=== PATIENT | female | born 1950 | race Caucasian/White ===

== ENCOUNTER → 2016-12-01 08:42 | Outpatient (CLI) | payer MEDICARE, OTHER ==
[2011-06-25 14:11] VITALS: BMI 31.6
[~2016-12-01 08:42] MED LIST: CLARITIN 10 MG10 MG PO; HCTZ25 MG PO; HYDROCODON-ACE1 EAC7 PO; KLOR-CON 1010 MEQ PO; NAMENDA5 MG PO; OMEPRAZOLE20 M1 PO; PEPCID40 MG PO; SINGULAIR10 MG PO
[2017-01-11 10:30] VITALS: BMI 32.2
== END | disposition home or self-care (01) ==
LOC: D.RAD 08:42
DX: K21.9 Gastro-esophageal reflux disease without esophagitis (principal)

== ENCOUNTER 2017-01-11 08:23 | Day surgery (SDC) | payer MEDICARE, OTHER ==
[~2017-01-11] VITALS: Ht 152.4 cm; Wt 75.0 kg
[2017-01-11] MEDS ORDERED: HYDROCODON-ACE1 EAC7 PO (10:21)
[2017-01-11] MEDS ORDERED: PEPCID40 MG PO (10:22)
[2017-01-11] MEDS ORDERED: OMEPRAZOLE20 M1 PO (10:22)
[2017-01-11] MEDS ORDERED: KLOR-CON 1010 MEQ PO (10:23)
[2017-01-11] MEDS ORDERED: CLARITIN 10 MG10 MG PO (10:24)
[2017-01-11] MEDS ORDERED: HCTZ25 MG PO (10:24)
[2017-01-11] MEDS ORDERED: NAMENDA5 MG PO (10:24)
[2017-01-11] MEDS ORDERED: SINGULAIR10 MG PO (10:24)
[2017-01-11 10:30] VITALS: BP 142/79; Ht 152.4 cm; Wt 75.0 kg
--- NOTE | 2017-01-11 10:49 | NUR ---
1049 CALLED ANESTHESIA ORDER READS WITH INTUBATION. PERCY JACK AND DR KIRKPATRICK TALKED WITH PATIENT AND WILL NOT TO ANESTHESIA.
--- NOTE | 2017-01-11 14:26 | NUR ---
1330-PT DOING WELL NO DISTRESS ON ROOM AIR EVEN NONLABORED RESP EFFORT, POX 99% PT UP TO BATHROOM AND VOIDED AND PASSING GAS PT HAD TOLERATED FULL LIQUID TRAY WELL 1335-IV DISCONTINUED WITH CATHETER INTACT, DISCHARGE INSTRUCTIONS GIVEN AND WENT OVER WITH PATIENT. COPY HANDED TO PT AND PT STATES UNDERSTANDING. PT ESCORTED OUT VIA WHEELCHAIR IN STABLE CONDITION
--- NOTE | 2017-01-12 09:05 | OP ---
PATIENT NAME: TA HARDIN V MEDICAL RECORD: [id number] :52 LOCATION:D.OPS ADMISSION DATE: SURGEON: CORA FRANCES DO DATE OF OPERATION: 01/11/2017 PROCEDURE: Colonoscopy. SCOPE: Olympus video pediatric colonoscope. MEDICATIONS: Propofol 450 mg IV per anesthesia. INDICATIONS: Change in bowel habits, hematochezia. FINDINGS: Informed consent was given. The patient was made comfortable with the above medication. After reaching an adequate level of sedation by slow IV push, the patient was placed on her left side. The digital rectal examination was performed. On examination, she had some external hemorrhoids and tags present. The endoscope was then advanced under direct visualization to the cecum, evidenced by the appendiceal orifice and ileocecal valve. Scope was then slowly withdrawn while the mucosa was examined. There was evidence of pandiverticulosis of moderate severity with mixed, small, and large wide mouthed diverticula. Upon reaching the rectum, retroflexion was performed. On that view, there was some evidence of some small internal hemorrhoids without stigmata of bleeding. Scope was then withdrawn from the patient. The patient tolerated the procedure well and there were no complications. IMPRESSION: 1. Pandiverticulosis of moderate severity. 2. Internal and external hemorrhoids without bleeding stigmata. RECOMMENDATIONS: 1. Discharge home when recovery parameters are met. 2. Start a high fiber diet. 3. Supplement diet with Metamucil 1-2 tablespoons daily to maintain regular, soft bowel movements. 4. Repeat colonoscopy in 7-10 years for continued colon cancer screening. 5. Follow up in the GI clinic as needed or if bowels do not improve with initiation of fiber. TRANSINT:[id number] Voice Confirmation ID: [id number] DOCUMENT ID: [id number] CORA FRANCES DO at 0905 CC: [id number] DICTATION DATE: 01/11/17 1244 [employer] SPECIALIST: 01/11/17 1713 [facility] 01/11/[address] [id number]
== END 2017-01-11 13:35 | disposition home or self-care (01) ==
LOC: D.OPS 08:23
DX: K92.1 Melena (principal); R19.4 Change in bowel habit; K57.90 Diverticulosis of intestine, part unspecified, without perforation or abscess without bleeding; K64.4 Residual hemorrhoidal skin tags; K64.8 Other hemorrhoids; I10 Essential (primary) hypertension; K21.9 Gastro-esophageal reflux disease without esophagitis

== ENCOUNTER → 2017-04-23 16:46 | Outpatient (CLI) | payer MEDICARE, OTHER ==
[2017-01-11 10:30] VITALS: BMI 32.2
== END | disposition home or self-care (01) ==
LOC: D.MAMMO 10:00
DX: Z12.31 Encounter for screening mammogram for malignant neoplasm of breast (principal)

== ENCOUNTER → 2018-03-28 09:56 | Outpatient (CLI) | payer MEDICARE, OTHER ==
[2017-01-11 10:30] VITALS: BMI 32.2
== END | disposition home or self-care (01) ==
LOC: D.MRI 09:56
DX: M25.551 Pain in right hip (principal)

== ENCOUNTER 2019-05-31 13:30 | Outpatient (CLI) | payer MEDICARE, OTHER ==
[2017-01-11 10:30] VITALS: BMI 32.2
== END 2019-05-31 14:00 | disposition home or self-care (01) ==
LOC: D.MAMMO 13:30
PROVIDERS: ATTEND Clinical Nurse Specialist Family Health
DX: Z12.31 Encounter for screening mammogram for malignant neoplasm of breast (principal)

== ENCOUNTER 2021-03-21 14:15 | Outpatient (CLI) | payer MEDICARE, OTHER ==
[2017-01-11 10:30] VITALS: BMI 32.2
== END 2021-03-21 23:59 | disposition home or self-care (01) ==
LOC: D.MAMMO 14:15
PROVIDERS: ATTEND Clinical Nurse Specialist Family Health
DX: Z12.31 Encounter for screening mammogram for malignant neoplasm of breast (principal)